=== PATIENT | male | born 1960 | race Caucasian/White ===

== ENCOUNTER 2022-10-18 09:00 | Outpatient (RCR) | payer MEDICAID, SELFPAY | END 2022-12-12 09:13 | disposition home or self-care (01) | LOC: HO.PTCHIC 09:00 | PROVIDERS: PCP Physician Assistant Medical; Visit Provider Physician Assistant Surgical | DX: Z98.890 Other specified postprocedural states (principal) | CPT/HCPCS: 97110; 97140; 97162 ==